=== PATIENT | female | born 1975 | race Caucasian/White ===

== ENCOUNTER → 2024-05-03 10:58 | Outpatient (REF) | payer OTHER, SELFPAY | LOC: RCS 10:58 | PROVIDERS: ATTENDING PHYSICIAN Student in an Organized Health Care Education/Training Program; FAMILY PHYSICIAN Family Medicine | DX: R07.9 Chest pain, unspecified (principal) | CPT/HCPCS: 93017 ==

== ENCOUNTER → 2024-05-11 10:12 | Outpatient (REF) | payer OTHER, SELFPAY | LOC: RAD 10:12 | PROVIDERS: ATTENDING PHYSICIAN Student in an Organized Health Care Education/Training Program; FAMILY PHYSICIAN Family Medicine | DX: R94.39 Abnormal result of other cardiovascular function study (principal); R07.9 Chest pain, unspecified | CPT/HCPCS: 75574; Q9967 ==

== ENCOUNTER 2024-05-13 08:11 | Emergency (ER) | payer OTHER, SELFPAY ==
[2024-05-13] VITALS (7 sets, daily range): BP systolic 123–151; BP diastolic 77–95; BMI 30.9
--- NOTE | 2024-05-13 08:59 | EDRN ---
ED Resident MD Cortez in room w/ pt.
--- NOTE | 2024-05-13 09:44 | ED.GENMED ---
History of Present Illness
<Dana Ramirez MD, Resident - Last Filed: 05/13/24 13:27>
General
Chief Complaint: Chest Pain
Source: patient
Exam Limitations: none
Time Seen by Provider: 05/13/24 08:34
Nursing documentation reviewed up to this point in time: agreed with
History of Present Illness
History of Present Illness:
48yo F with PMH palpitations/chest tightness undergoing outpatient workup with cardiology, gallstones, GERD, anxiety who presents from home to ED for chest discomfort. She describes a sensation of pressure/burning across the front of her chest on
both sides, and it radiates to her upper back. She says this began at 5am (she was already awake prior to onset due to difficulty sleeping) when resting and is constant, has not changed in quality or intensity. She took mylanta with no improvement
in symptoms. Not improved with rest, not worsened with activity such as climbing flight of stairs or walking. Currently denies shortness of breath, cough, abdominal pain. Has not had anything to eat or drink since 11pm, no pain/difficulty with
swallowing.
She is anxious that is cardiac in nature due to being worked up outpatient for palpitations and chest tightness-- her EKG stress test was 'moderate risk,' so she was sent for coronary CTA on 05/11/24 but no results are available yet. She was seen at
[facility] ED this morning and was apparently told they might want to observe her overnight-- she left for evaluation at given her cardiologists are here. She was recently hospitalized at [facility] 1 month ago after presenting for abdominal
pain/reflux and was diagnosed with gallstones. She says she had similar chest pain at that time (along with bloating, postprandial abdominal pain, etc) which she attributed to her GI issues.
Past History
<Dana Ramirez MD, Resident - Last Filed: 05/13/24 13:27>
Past History
ED Past Medical History: GERD, HTN, Hypothyroidism, Psychiatric (anxiety) and Other (fibromyalgia)
ED Past Surgical History: None
Patient has exhibited threatening behavior?: No
Social History
Tobacco: Former smoker (as of 05/13/24, has not smoked in 8 years)
Alcohol: None
Drug: None
Personal: Partner
Living: with family
Family History
Family History: CAD (maternal grandfather) and Cancer (maternal grandmother- colon, pancreatic)
Review of Systems
<Dana Ramirez MD, Resident - Last Filed: 05/13/24 13:27>
Review of Systems
Allergies reviewed?: Yes
Constitutional: Reports sleep disturbance (chronic insomnia); Denies fever, fatigue or chills
EENT: Reports no symptoms
Respiratory: Reports no symptoms; Denies cough, hemoptysis or trouble breathing
Cardiac: Reports chest pain (see HPI); Denies diaphoresis, palpitations or syncope
ABD/GI: Reports no symptoms; Denies abdominal pain, nausea, vomiting, diarrhea, constipated, bloody stools or black stools
: Reports no symptoms; Denies dysuria or incontinence
Musculoskeletal: Reports no symptoms
Skin: Reports no symptoms
Neurological: Reports no symptoms; Denies dizzy, headache or weakness
Endocrine: Reports no symptoms
Hematologic/Lymphatic: Reports no symptoms
Psychiatric: Reports anxiety
Phy Exam
<Dana Ramirez MD, Resident - Last Filed: 05/13/24 13:27>
General Physical Exam
General Presentation: well appearing and no apparent distress
General age: appears stated age
General Skin: warm and dry
General Habitus: normal and obese
General Mental: alert
General Hydration: appears well hydrated
Cardiovascular Exam
Cardiovascular Exam: regular rate/rhythm, no edema, no murmur and normal peripheral pulses
Heart Sounds: normal
Pulmonary Exam
Pulmonary Exam: lungs clear, no respiratory distress, chest non tender, no crackles, no stridor, no wheezing and no cough
Oxygen Status: room air
Respirations: other (nonlabored breathing)
Gastrointestinal Exam
Gastrointestinal Exam: normal bowel sounds, non tender, soft and non distended
Musculoskeletal Exam
Musculoskeletal Exam: no edema and other (no calf tenderness)
Psychiatric Exam
Psychiatric Exam: anxious
Scores
<Dana Ramirez MD, Resident - Last Filed: 05/13/24 13:27>
Heart Score for Chest Pain Patients
Heart Score for Chest Pain Patients: 2
Heart Score Risk: 2.5% MACE over next 6 weeks
<Adry Rees, DO - Last Filed: 05/13/24 13:17>
Heart Score for Chest Pain Patients
STEMI patient?: No
History: Slightly or Non-Suspicious
ECG: Normal
Age: >45 - <65 years
Risk Factors: 1 or 2 Risk Factors
Troponin: </= Normal Limit
Heart Score for Chest Pain Patients: 2
Heart Score Risk: 2.5% MACE over next 6 weeks
Course
<Dana Ramirez MD, Resident - Last Filed: 05/13/24 13:27>
Orders/Labs/Results
Orders:
Orders
05/13/24 08:18
Electrocardiogram (*1) Urgent
Reason for Study: Chest Pain
EKG- Treatment ONCE
05/13/24 09:13
Cardiac Monitoring- Treatment ONCE
IV Insert/Care/Rem.- Treatment PRN
05/13/24 09:26
Complete Blood Count/With Diff Urgent
Comprehensive Metabolic Panel Urgent
Troponin I Urgent
05/13/24 09:46
Famotidine [Pepcid] 40 mg PO NOW STA
05/13/24 10:17
Add On- LAB Urgent
Comments:: tube in lab
Tests Added?: serum HCG
05/13/24 12:32
Troponin I Urgent
Abnormal Lab Results
05/13/24
09:26
RBC 4.08 L 10^6/uL
(4.20-5.40)
Hct 35.9 L %
(37.0-47.0)
Carbon Dioxide 31 H mmol/L
(22-30)
BUN 19 H mg/dl
(7-17)
Glucose 104 H mg/dl
(70-99)
05/13/24 09:26
05/13/24 09:26
Vital Signs
Initial and Last Documented VS:
Initial Vital Signs
Temp Pulse Resp BP Pulse Ox
97.9 F 83 18 151/89 99
05/13/24 08:19 05/13/24 08:19 05/13/24 08:19 05/13/24 08:19 05/13/24 08:19
Last Documented Vital Signs
Temp Pulse Resp BP Pulse Ox
97.9 F 76 13 137/83 99
05/13/24 08:19 05/13/24 13:00 05/13/24 13:00 05/13/24 13:00 05/13/24 13:00
<Adry Rees, DO - Last Filed: 05/13/24 13:17>
Orders/Labs/Results
Orders:
Orders
05/13/24 08:18
Electrocardiogram (*1) Urgent
Reason for Study: Chest Pain
EKG- Treatment ONCE
05/13/24 09:13
Cardiac Monitoring- Treatment ONCE
IV Insert/Care/Rem.- Treatment PRN
05/13/24 09:26
Complete Blood Count/With Diff Urgent
Comprehensive Metabolic Panel Urgent
Troponin I Urgent
05/13/24 09:46
Famotidine [Pepcid] 40 mg PO NOW STA
05/13/24 10:17
Add On- LAB Urgent
Comments:: tube in lab
Tests Added?: serum HCG
05/13/24 12:32
Troponin I Urgent
Abnormal Lab Results
05/13/24
09:26
RBC 4.08 L 10^6/uL
(4.20-5.40)
Hct 35.9 L %
(37.0-47.0)
Carbon Dioxide 31 H mmol/L
(22-30)
BUN 19 H mg/dl
(7-17)
Glucose 104 H mg/dl
(70-99)
05/13/24 09:26
05/13/24 09:26
Vital Signs
Initial and Last Documented VS:
Initial Vital Signs
Temp Pulse Resp BP Pulse Ox
97.9 F 83 18 151/89 99
05/13/24 08:19 05/13/24 08:19 05/13/24 08:19 05/13/24 08:19 05/13/24 08:19
Last Documented Vital Signs
Temp Pulse Resp BP Pulse Ox
97.9 F 76 13 137/83 99
05/13/24 08:19 05/13/24 13:00 05/13/24 13:00 05/13/24 13:00 05/13/24 13:00
<Dana Ramirez MD, Resident - Last Filed: 05/13/24 13:27>
MDM/Problems Addressed
Differential Diagnosis Includes:
chest discomfort of unclear etiology- differential includes musculoskeletal, GERD, esophageal spasm, ACS
Low risk for PE by wells criteria, no history of aortic aneurysm
MDM/Problems Addressed:
48yo F with PMH chest tightness/palpitations and gallstones who presents for bilateral chest pressure/burning
AFVSS hypertension noted, EKG with NSR, no ischemic changes
Will check CBC, CMP, troponin
Keep on site monitor for now
Will give dose of pepcid and reassess
<Dana Ramirez MD, Resident - Last Filed: 05/13/24 13:27>
*Critical Care Note
Total Time (30-74mins, 75-104mins- exclusive of procedures): Not Applicable
<Adry Rees DO - Last Filed: 05/13/24 13:17>
*EKG
Interpreted by ED Provider?: Yes
EKG Intrepretation Date: 05/13/24
EKG Intrepretation Time: 09:55
Interpretation: normal
Heart Rate: 74
Rate: normal
Rhythm: sinus
Distant: normal axis
Interval: normal interval
QRS Pattern: normal QRS
Ischemia: no ischemia
<Dana Ramirez MD, Resident - Last Filed: 05/13/24 13:27>
Update Note
Update Note:
1020: Troponin negative-- less likely ACS. Will reach out to cardiology to see if results of coronary cta are available. CBC and CMP unremarkable. Do not suspect chest discomfort is related to her history of gallstones. Feeling slightly improved
after dose of pepcid, though chest discomfort still present.
1315: Repeat troponin also negative. Reassured that chest discomfort is not ACS at this time. Additionally, coronary cta from 05/11 showed no significant coronary artery disease, calcium score 0. Stable for discharge home with supportive measures and
follow up with cardiology. Recommend trial of omeprazole for GERD, will need follow up with PCP vs GI.
ED Attending Note
<Dana Ramirez MD, Resident - Last Filed: 05/13/24 13:27>
-
Portions of this chart may have been created with voice recognition software.� Occasional wrong word or��sound alike� substitutions may have occurred due to the inherent limitations of voice recognition software.
<Adry Rees DO - Last Filed: 05/13/24 13:17>
ED Attending Note
Patient seen and examined by attending physician: Yes
I performed the substantive portion of visit, reviewed & personally made and approve the management plan that is documented in note by myself or EFRAIN.: Yes
I performed a history and physical exam of patient and discussed management with resident, I reviewed resident's note and agree with documented findings and plan of care.: Yes
ED Attending Note:
48-year-old female with history of gallstones and GERD presenting to the emergency department for chest tightness and pressure. Notes symptoms are at 5 AM, have been constant since onset. Denies exertional component. She tried Mylanta for her
symptoms. She was concerned primarily because she had a stress test recently on 05/03, abnormal. She was subsequently sent to get a CT coronary study, however results have not yet been discussed with her. She denies difficulty breathing. Denies
any known coronary artery disease. Denies abdominal pain, fever, vomiting. Vital signs on arrival are significant for mild hypertension which resolved without intervention
On exam, patient is well-appearing, no acute distress or discomfort. EKG obtained upon arrival, nonischemic. Unremarkable cardiac and pulmonary exam. If lower suspicion for ACS, however did review stress test from 05/03, moderate risk. Patient
subsequently had a CT coronary study on 05/11, no results are back. Will obtain laboratory analysis including troponin and discussed with cardiology
10:50 -initial troponin is undetectable. Did discuss with cardiology who did read patient's CT coronary, calcium score of 0, no evidence of significant coronary artery disease. Given this information, low risk by heart score. Will send a second
troponin with plan of discharge and outpatient cardiology follow-up if within normal limit
13:10 -second troponin within normal limits. Again patient low risk by heart score. Stable for discharge with outpatient cardiology follow-up.
Discharge Plan
Departure
Patient Disposition: Home (Routine Discharge)
Date of Disposition: 05/13/24
Time of Disposition: 13:21
Patient with high blood pressure during this ER visit?: Yes
Discharge Problem:
Non-cardiac chest pain
Instructions: Chest Pain That Is Not Caused by the Heart (DC), Acid Reflux and GERD in Adults (DC), BLOOD PRESSURE
Referrals:
Ray,Heide H., MD [Family Provider] -
Activity Restrictions/Additional Instructions:
You were seen in the ED for chest pain.
Your troponin was negative x2, and your ECG was normal. This was reassuring that this pain today is not from a cardiac issue.
Please follow up closely with your rn clinical coordinator and PCP for further evaluation.
You can try daily omeprazole to help with your acid reflux.
If you develop worsening chest pain, difficulty breathing, palpitations or feeling like you are going to pass out, please return to ED for evaluation.
Interventions
Interventions:
*Risk Screen - Suicide Last Done: 05/13/24 08:23
*General Assessment Last Done: 05/13/24 09:30
*Neglect/Abuse Screening Last Done: 05/13/24 08:23
ED- Fall Risk Assessment Last Done: 05/13/24 09:30
*ED COVID-19 Vaccine History Last Done: 05/13/24 09:30
ED- Cardiac Assessment Last Done: 05/13/24 09:30
Discharge Date and Time
Print Language: POLISH
[2024-05-13 09:52] LABS: % Basophils 0.5 % (0-2); % Immature Granulocytes 0.2 % (0-0.5); % Lymphocytes 32.3 % (20.5-51.1); % Monocytes 6.5 % (1.7-9.3); % Neutrophils 59.5 % (42.2-75.2); Absolute Eosinophils 0.1 10^3/uL (0-0.7); Absolute Monocytes 0.4 10^3/uL (0.1-0.6); Absolute Neutrophils 3.6 10^3/uL (1.4-6.5); Hematocrit 35.9 % (37.0-47.0); Hemoglobin 12.3 g/dL (12.0-16.0); Mean Corp Hgb Conc. 34.3 g/dL (33.0-37.0); Mean Corpuscular Hgb 30.1 pg (27.0-31.0); Mean Platelet Volume 10.4 fL (7.4-10.4); Nucleated Red Blood Cells % 0 %; Platelet Count 196 10^3/uL (130-400); Red Blood Cell Count 4.08 10^6/uL (4.20-5.40); Red Cell Dist. Width 12.2 % (11.5-14.5)
[2024-05-13] MEDS: PEPCID 40 MG PO (09:52)
[2024-05-13 10:06] LABS: ALT (SGPT) 14 U/L (0-35); AST (SGOT) 18 U/L (14-36); Albumin 4.3 g/dl (3.5-5.0); Alkaline Phosphatase 71 U/L (38-126); Blood Urea Nitrogen 19 mg/dl (7-17); Calcium 9.3 mg/dl (8.4-10.2); Carbon Dioxide 31 mmol/L (22-30); Chloride 105 mmol/L (98-107); Estimated Creatinine Clearance 86 ml/min; Glucose 104 mg/dl (70-99); Potassium 4.6 mmol/L (3.5-5.1); Sodium 141 mmol/L (135-145); Total Bilirubin 0.3 mg/dl (0.2-1.3); Total Protein 6.7 g/dl (6.3-8.2); eGFR > 60.00
--- NOTE | 2024-05-13 10:13 | EDRN ---
This RN TT'd Nai Ramirez ED resident MD at this time about CXR, and urine spec whether needed or not. Also if she wants a d-dimer.
[2024-05-13 10:15] LABS: Troponin I < 0.012 ng/ml
--- NOTE | 2024-05-13 11:51 | EDRN ---
ED resident MD Nai Ramirez in room w/ pt at this time. Pt is awaiting repeat troponin at this time due at 12:30. Pt states pain is changeable w/movement and slightly higher from 4/10 now, though does not rate her pain at this time.
--- NOTE | 2024-05-13 12:21 | EDRN ---
Dr. Mark in to see pt at this time.
--- NOTE | 2024-05-13 12:50 | EDRN ---
Dr. Rees in room w/ pt.
[2024-05-13 13:07] LABS: Troponin I < 0.012 ng/ml
[2024-05-13 15:12] LABS: HCG, Serum Qualitative Screen Negative
== END 2024-05-13 13:35 | disposition home or self-care (01) ==
LOC: EMR 08:11
PROVIDERS: Student in an Organized Health Care Education/Training Program; EMERGENCY PHYSICIAN Student in an Organized Health Care Education/Training Program; FAMILY PHYSICIAN Family Medicine
DX: R07.89 Other chest pain (principal); R00.2 Palpitations; K21.9 Gastro-esophageal reflux disease without esophagitis; K80.20 Calculus of gallbladder without cholecystitis without obstruction; I10 Essential (primary) hypertension; F41.9 Anxiety disorder, unspecified; M79.7 Fibromyalgia; E03.9 Hypothyroidism, unspecified; F41.0 Panic disorder [episodic paroxysmal anxiety]
CPT/HCPCS: 99284; 80053; 84484; 84703; 85025; 93005